=== PATIENT | female | born 1955 | race Caucasian/White ===

== ENCOUNTER → 2020-03-25 | Outpatient (CLI) | payer OTHER ==
--- NOTE | 2020-04-20 22:03 | SLEEP ---
[facility] [address] [place] [address] SLEEP STUDY REPORT Name: DESTINY MERCADO Room: [facility]#: [id number] Admission: 03/25/20 Attend Phys: Dimitri Robles Discharge: Date of : 55 Report #: [id number] THIS REPORT FOR: //name// CC: Preethi Mclaughlin This study has been reviewed in its entirety by a board certified sleep specialist DATE OF SERVICE: 03/26/2020 HOME SLEEP STUDY INDICATION FOR SLEEP STUDY: Daytime sleepiness. INTERPRETATION: Total duration of the study is 436 minutes. During this time duration, we recorded 85 obstructive apneas in addition to 8 hypopneas with an overall apnea-hypopnea index of 14.0. Body position data indicates that the patient was lying supine through most of the sleep study. We also did record multiple desaturations. Overall, the patient spent 16.2 minutes below an O2 saturation of 90%, out of which 2.6 minutes were spent below an O2 saturation of 88%. Mean heart rate was 80. IMPRESSION: Obstructive sleep apnea with an apnea-hypopnea index of 14.0 with mild nocturnal hypoxemia as described above. The patient is noted to be supine throughout the sleep study. RECOMMENDATIONS: Recommend proceeding with positive airway pressure therapy. Options include the use of a CPAP auto titrated device or proceeding with a repeat sleep study in the sleep lab for positive airway pressure titration. Clinical correlation is advised. In case institution of a positive airway pressure device while asleep is not feasible, then the use of a mandibular advancement device could be an alternate but less effective therapy. Recommend avoiding driving or other activities requiring vigilance if drowsy. This entire sleep study was reviewed by board certified sleep physician. <ELECTRONICALLY SIGNED> By: John Vera MD 04/20/20 [id number] 2008Anerissa Vera MD /nt
== END ==
LOC: M.SLEEPLAB 03-21 09:00 → M.PUL 03-24 10:00
PROVIDERS: ATTEND Family Medicine
DX: G47.33 Obstructive sleep apnea (adult) (pediatric) (principal); G47.34 Idiopathic sleep related nonobstructive alveolar hypoventilation

== ENCOUNTER 2021-06-06 07:01 | Emergency (ER) | payer MEDICARE, OTHER ==
[~2021-06-06] VITALS: Ht 167.6 cm; Wt 63.5 kg
[2021-06-06 07:14] VITALS: BP 117/79
[2021-06-06] MEDS ORDERED: LIPITOR 20 MG T20 M1 PO (07:19)
[2021-06-06] MEDS ORDERED: ZOLOFT100 MG PO (07:19)
[2021-06-06] MEDS ORDERED: OSPHENA60 MG PO (07:20)
[2021-06-06] MEDS ORDERED: HYDROCODON-ACE1 EAC7 PO (08:35)
== END 2021-06-06 08:58 | disposition home or self-care (01) ==
LOC: M.ERS 07:01
DX: S62.396A Other fracture of fifth metacarpal bone, right hand, initial encounter for closed fracture (principal); Z79.899 Other long term (current) drug therapy; W01.0XXA Fall on same level from slipping, tripping and stumbling without subsequent striking against object, initial encounter; Y93.89 Activity, other specified; Y92.89 Other specified places as the place of occurrence of the external cause; Y99.8 Other external cause status